=== PATIENT | female | born 1945 | race Caucasian/White ===

== ENCOUNTER 2018-05-06 05:09 | Emergency (ER) | payer MEDICARE ==
[~2018-05-06] VITALS: Ht 165.1 cm; Wt 60.0 kg
[2018-05-06 05:10] VITALS: BP 94/55
[2018-05-06] MEDS ORDERED: METHOCARBAMOL 750 MG TABLET PO ONE (05:30)
[2018-05-06] MEDS ORDERED: KETOROLAC 30 MG/1 ML IM ONE (05:30)
[2018-05-06] MEDS ORDERED: METHOCARBAMOL 750 MG TABLET ONE (05:33)
[2018-05-06] MEDS ORDERED: KETOROLAC 30 MG/1 ML ONE (05:33)
== END 2018-05-06 06:20 | disposition home or self-care (01) ==
LOC: ED 06:15
DX: M65.221 Calcific tendinitis, right upper arm (principal); X58.XXXA Exposure to other specified factors, initial encounter; Y93.89 Activity, other specified; Y99.8 Other external cause status; Y92.009 Unspecified place in unspecified non-institutional (private) residence as the place of occurrence of the external cause
CPT/HCPCS: 73030; 96372; 99284; J1885

== ENCOUNTER → 2018-06-27 | Outpatient (CLI) | payer MEDICARE ==
[~2018-06-27] MED LIST: None per pt
== END | disposition home or self-care (01) ==
LOC: STAR 09:57
PROVIDERS: ATTEND Internal Medicine
DX: Z01.818 Encounter for other preprocedural examination (principal); R91.8 Other nonspecific abnormal finding of lung field
CPT/HCPCS: 93005

== ENCOUNTER → 2018-06-28 | Outpatient (CLI) | payer MEDICARE | END | disposition home or self-care (01) | LOC: CFH 15:21 | PROVIDERS: ATTEND Internal Medicine | DX: J43.9 Emphysema, unspecified (principal); R91.8 Other nonspecific abnormal finding of lung field; R59.0 Localized enlarged lymph nodes; I25.10 Atherosclerotic heart disease of native coronary artery without angina pectoris; F17.200 Nicotine dependence, unspecified, uncomplicated | CPT/HCPCS: 71250 ==

== ENCOUNTER → 2018-08-09 | Outpatient (CLI) | payer MEDICARE | END | disposition home or self-care (01) | LOC: PETCFH 12:29 | PROVIDERS: ATTEND Internal Medicine | DX: E04.1 Nontoxic single thyroid nodule (principal); R91.8 Other nonspecific abnormal finding of lung field | CPT/HCPCS: 78815; A9552 ==

== ENCOUNTER → 2018-09-08 | Outpatient (CLI) | payer MEDICARE ==
[~2018-09-08] MED LIST changes: +IBUP-1223 PO
== END | disposition home or self-care (01) ==
LOC: CARD 14:08
PROVIDERS: ATTEND Thoracic Surgery (Cardiothoracic Vascular Surgery)
DX: C34.31 Malignant neoplasm of lower lobe, right bronchus or lung (principal)
CPT/HCPCS: 94060; 94726; 94729

== ENCOUNTER 2018-09-14 11:03 | Inpatient (IN) | payer MEDICARE ==
[2018-09-12 14:37] LABS: BASOPHILS # (AUTO) 0.05 x10^3/uL (0-0.1); BASOPHILS % (AUTO) 1 % (0-1); EOSINOPHILS % (AUTO) 1 % (1-7); LYMPHOCYTES % (AUTO) 38 % (22-44); MD NO; MEAN CORPUSCULAR HEMOGLOBIN 29.1 pg (27.0-34.8); MEAN CORPUSCULAR VOLUME 88.3 fL (80-100); MEAN PLATELET VOLUME 7.1 fL (7.4-10.4); MONOCYTES # (AUTO) 0.73 x10^3/uL (0.2-0.8); MONOCYTES % (AUTO) 8 % (2-9); NEUTROPHILS # (AUTO) 4.87 x10^3/uL (1.8-6.8); NEUTROPHILS % (AUTO) 53 % (42-75); PLATELET COUNT 325 x10^3/uL (130-400); RED BLOOD COUNT 4.96 x10^6/uL (3.82-5.3); RED CELL DISTRIBUTION WIDTH 17.3 % (9.6-15.2)
[2018-09-12 14:48] LABS: ALANINE AMINOTRANSFERASE 16 U/L (12-78); ALBUMIN 3.4 g/dL (3.4-5.0); ANION GAP 5 mmol/L (5-15); CALCIUM 9.4 mg/dL (8.5-10.1); CHLORIDE 109 mmol/L (98-107); CREATININE 0.89 mg/dL (0.55-1.02)
[2018-09-12 14:51] LABS: ALKALINE PHOSPHATASE 103 U/L (45-117); BILIRUBIN,TOTAL 0.2 mg/dL (0.2-1.0); TOTAL PROTEIN 7.4 g/dL (6.4-8.2)
[~2018-09-14] VITALS: Ht 165.1 cm; Wt 53.2 kg
[~2018-09-14 11:03] MED LIST changes: -IBUP-1223 PO
[2018-09-14] MEDS ORDERED: IBUP-1223 PO (11:29)
[2018-09-14] MEDS ORDERED: LIDOCAINE-MPF 1%, 2ML ONE (11:34)
[2018-09-14] MEDS: LACTATED RINGERS 1,000 ML IV SCH (11:47)
[2018-09-14] MEDS ORDERED: LIDOCAINE-MPF 1%, 2ML INFIL ONE (12:00)
[2018-09-14] MEDS ORDERED: MIDAZOLAM 1 MG/ML, 2ML ONE (12:48)
[2018-09-14] MEDS ORDERED: FENTANYL PF 250 MCG/5ML ONE (12:48)
[2018-09-14] MEDS ORDERED: ROCURONIUM 10 MG/ML,10ML ONE (12:53)
[2018-09-14] MEDS ORDERED: PHENYLEPHRINE 10 MG/ML ONE (12:53)
[2018-09-14] MEDS ORDERED: NEOSTIGMINE 1 MG/ML, 10ML ONE (12:53)
[2018-09-14] MEDS ORDERED: SUCCINYLCHOLINE 20 MG/ML, 10ML ONE (12:53)
[2018-09-14] MEDS ORDERED: DEXAMETHASONE 4 MG/ML, 1ML ONE (12:53)
[2018-09-14] MEDS ORDERED: GLYCOPYRROLATE 0.2MG/1ML, 5ML ONE (12:53)
[2018-09-14] MEDS ORDERED: PROPOFOL 10 MG/ML, 20ML ONE (12:53)
[2018-09-14] MEDS ORDERED: EPHEDRINE 50 MG/ML, 1ML ONE (12:53)
[2018-09-14] MEDS ORDERED: CEFAZOLIN 1,000 MG ONE (12:53)
[2018-09-14] MEDS ORDERED: ALBUMIN HUMAN 5% 500 ML ONE (14:15)
[2018-09-14] MEDS ORDERED: ALBUMIN HUMAN 25% 0 ML ONE (14:15)
[2018-09-14] MEDS ORDERED: FENTANYL PF 100 MCG/2ML ONE ×2 (14:29→15:25)
[2018-09-14] MEDS ORDERED: ACETAMINOPHEN 325 MG TABLET PO PRN (14:30)
[2018-09-14] MEDS ORDERED: ONDANSETRON 2MG/ML, 2ML IV PRN (14:30)
[2018-09-14] MEDS ORDERED: HYDROmorphone 1 MG/ML, 1ML IV PRN (14:30)
[2018-09-14] MEDS ORDERED: OXYcodone 5 MG/5 ML ORAL.SOL UDC PO PRN (14:30)
[2018-09-14] MEDS ORDERED: LACTATED RINGERS 1,000 ML IV SCH (15:20)
[2018-09-14] MEDS ORDERED: ONDANSETRON 2MG/ML, 2ML IVPush PRN (15:30)
[2018-09-14] MEDS ORDERED: DIPHENHYDRAMINE 25 MG CAPSULE PO PRN (15:30)
[2018-09-14] MEDS ORDERED: LORazepam 0.5MG TABLET PO PRN (15:30)
[2018-09-14] MEDS: FAMOTIDINE 20 MG/2 ML IVPush SCH (15:30)
[2018-09-14] MEDS ORDERED: DIPHENHYDRAMINE 50 MG/ML, 1ML IVPush PRN (15:30)
[2018-09-14] MEDS ORDERED: FAMOTIDINE 20 MG TABLET PO SCH (15:30)
[2018-09-14] MEDS ORDERED: LORazepam 2 MG/ML, 1ML IVPush PRN (15:30)
[2018-09-14] MEDS ORDERED: ENALAPRILAT 1.25 MG/ML, 2ML IVPush PRN (15:30)
[2018-09-14] MEDS: FENTANYL PF 100 MCG/2ML IV PRN ×3 (15:30→15:55)
[2018-09-14] MEDS ORDERED: hydrALAzine 20 MG/ML, 1ML IVPush PRN (15:30)
[2018-09-14] MEDS ORDERED: MEPERIDINE/PF 50 MG/ML ONE (15:55)
[2018-09-14] MEDS: BUPIVACAINE EPI SCH (16:00)
[2018-09-14] MEDS ORDERED: MEPERIDINE/PF 25MG/0.5ML IVPush PRN (16:00)
[2018-09-14] MEDS: SODIUM CHLORIDE 0.9% EPI SCH (16:00)
[2018-09-14] MEDS: HYDROMORPHONE EPI SCH (16:00)
[2018-09-14] MEDS ORDERED: OXYcodone 5 MG/5 ML ORAL.SOL UDC ONE (16:16)
[2018-09-14] MEDS ORDERED: ACETAMINOPHEN 650 MG/20.3 ML UDC ONE (16:16)
[2018-09-14 19:23] VITALS: BP 99/63
[2018-09-14] MEDS: MEPERIDINE/PF 50 MG/ML IVPush PRN (23:40)
[2018-09-14 23:42] VITALS: BP 106/66
[2018-09-14 23:48] VITALS: BP 106/66
[2018-09-15] MEDS: FAMOTIDINE 20 MG/2 ML IVPush SCH ×2 (03:01→15:31)
[2018-09-15 04:35] LABS: BASOPHILS # (AUTO) 0.04 x10^3/uL (0-0.1); BASOPHILS % (AUTO) 0 % (0-1); EOSINOPHILS % (AUTO) 0 % (1-7); LYMPHOCYTES # (AUTO) 1.36 x10^3/uL (1-3.4); LYMPHOCYTES % (AUTO) 11 % (22-44); MD NO; MEAN CORPUSCULAR HEMOGLOBIN 29.4 pg (27.0-34.8); MEAN CORPUSCULAR HGB CONC 33.4 g/dL (32.4-35.8); MEAN CORPUSCULAR VOLUME 88.1 fL (80-100); MEAN PLATELET VOLUME 7.6 fL (7.4-10.4); MONOCYTES # (AUTO) 0.95 x10^3/uL (0.2-0.8); MONOCYTES % (AUTO) 8 % (2-9); NEUTROPHILS # (AUTO) 9.62 x10^3/uL (1.8-6.8); NEUTROPHILS % (AUTO) 80 % (42-75); PLATELET COUNT 277 x10^3/uL (130-400); RED BLOOD COUNT 4.13 x10^6/uL (3.82-5.3)
[2018-09-15] MEDS: MEPERIDINE/PF 50 MG/ML IVPush PRN ×3 (05:26→17:26)
[2018-09-15 05:35] LABS: ANION GAP 7 mmol/L (5-15); CALCIUM 8.9 mg/dL (8.5-10.1); CHLORIDE 107 mmol/L (98-107); CREATININE 0.54 mg/dL (0.55-1.02)
[2018-09-15] MEDS: LACTATED RINGERS 1,000 ML IV SCH ×2 (05:35→23:51)
[2018-09-15 06:44] VITALS: BP 86/50
[2018-09-15 12:40] VITALS: BP 86/50
[2018-09-15] MEDS: SODIUM CHLORIDE 0.9% EPI SCH (15:32)
[2018-09-15] MEDS: HYDROMORPHONE EPI SCH (15:32)
[2018-09-15] MEDS: BUPIVACAINE EPI SCH (15:32)
[2018-09-15 15:46] VITALS: BP 85/51
[2018-09-15 18:42] VITALS: BP 85/47
[2018-09-15 23:56] VITALS: BP 90/48
[2018-09-16] MEDS: MEPERIDINE/PF 50 MG/ML IVPush PRN
[2018-09-16] MEDS: FAMOTIDINE 20 MG/2 ML IVPush SCH ×2 (03:44→15:54)
[2018-09-16 06:36] VITALS: BP 91/59
[2018-09-16] MEDS: IBUPROFEN 800 MG TABLET PO PRN ×2 (09:47→18:23)
[2018-09-16] MEDS: OXYcodone/APAP 5/325MG TABLET PO PRN ×3 (10:10→19:50)
[2018-09-16 12:15] VITALS: BP 94/60
[2018-09-16] MEDS: HYDROMORPHONE EPI SCH (14:13)
[2018-09-16] MEDS: SODIUM CHLORIDE 0.9% EPI SCH (14:13)
[2018-09-16] MEDS: BUPIVACAINE EPI SCH (14:13)
[2018-09-16] MEDS: ACETAMINOPHEN 500 MG TABLET PO SCH ×2 (15:54→19:52)
[2018-09-16 16:43] VITALS: BP 103/66
[2018-09-16 18:48] VITALS: BP 107/71
[2018-09-16] MEDS: FAMOTIDINE 20 MG TABLET PO SCH (22:01)
[2018-09-17] MEDS: OXYcodone/APAP 5/325MG TABLET PO PRN ×2 (00:09→04:28)
[2018-09-17 00:55] VITALS: BP 143/70
[2018-09-17] MEDS: ACETAMINOPHEN 500 MG TABLET PO SCH ×4 (02:48→21:55)
[2018-09-17 03:57] VITALS: BP 115/61
[2018-09-17] MEDS: IBUPROFEN 800 MG TABLET PO PRN ×3 (06:14→20:16)
[2018-09-17 06:38] VITALS: BP 117/74
[2018-09-17] MEDS ORDERED: LACTULOSE 20 GM/30 ML UDC PO PRN (08:30)
[2018-09-17] MEDS ORDERED: BISACODYL 10 MG SUPP PR PRN (08:30)
[2018-09-17] MEDS: DOCUSATE 50 MG/5 ML, 10ML UDC NG SCH (08:47)
[2018-09-17] MEDS: DOCUSATE 100 MG CAPSULE PO SCH (08:59)
[2018-09-17] MEDS: HYDROmorphone 2MG TABLET PO PRN ×5 (08:59→21:51)
[2018-09-17] MEDS: FAMOTIDINE 20 MG TABLET PO SCH ×2 (09:00→21:15)
[2018-09-17 12:35] VITALS: BP 116/61
[2018-09-17 16:10] VITALS: BP 106/65
[2018-09-17 18:42] VITALS: BP 125/68
[2018-09-17] MEDS ORDERED: SENNA/DOCUSATE TABLET PO SCH (21:00)
[2018-09-18] VITALS: BP 129/73
[2018-09-18] MEDS: HYDROmorphone 2MG TABLET PO PRN ×3 (01:54→11:24)
[2018-09-18] MEDS: ACETAMINOPHEN 500 MG TABLET PO SCH ×2 (03:36→11:23)
[2018-09-18 04:19] VITALS: BP 116/77
[2018-09-18 07:22] VITALS: BP 147/77
[2018-09-18] MEDS: IBUPROFEN 800 MG TABLET PO PRN (08:38)
[2018-09-18] MEDS: DOCUSATE 50 MG/5 ML, 10ML UDC NG SCH (09:00)
[2018-09-18] MEDS: DOCUSATE 100 MG CAPSULE PO SCH (09:00)
[2018-09-18] MEDS: FAMOTIDINE 20 MG TABLET PO SCH (09:00)
[2018-09-18 12:25] VITALS: BP 106/62
== END 2018-09-18 14:00 | disposition home or self-care (01) | DRG 163 ==
LOC: ORIP 11:03 → 3NW 16:49
PROVIDERS: ADMIT Thoracic Surgery (Cardiothoracic Vascular Surgery); ATTEND Thoracic Surgery (Cardiothoracic Vascular Surgery)
PROC: 07B70ZZ Excision of Thorax Lymphatic, Open Approach (ICD-10-PCS; 2018-09-14)
PROC: 0BTF0ZZ Resection of Right Lower Lung Lobe, Open Approach (ICD-10-PCS; principal; 2018-09-14 13:00)
DX: C34.31 Malignant neoplasm of lower lobe, right bronchus or lung (principal); R65.11 Systemic inflammatory response syndrome (SIRS) of non-infectious origin with acute organ dysfunction; J93.82 Other air leak; Z87.891 Personal history of nicotine dependence
CPT/HCPCS: 36415; 71045; 80048; 80053; 85025; 86850; 86900; 86923; 88305; 88309; 93005; C1729; G0378; J0690; J1100; J1170; J2175; J2250; J2704; J2710; J3010; J3490; P9045; P9047; C1760; J0330; J2370; J7050; J7120

== ENCOUNTER 2021-06-12 06:47 | Emergency (ER) | payer MEDICARE ==
[~2021-06-12] VITALS: Ht 165.1 cm; Wt 56.7 kg
[~2021-06-12 06:47] MED LIST changes: +IBUP-1223 PO
--- NOTE | 2021-06-12 07:33 | NUR ---
ERMD AT BEDSIDE FOR EVALUATION.
--- NOTE | 2021-06-12 07:35 | NUR ---
PATIENT WALKED BACK FROM LOBBY WITH CHIEF C/O UPPER BACK AND SHOULDER PAIN X3 MONTHS. PER PATIENT PAIN HAS GOTTEN WORSE, RADIATES TO RIGHT ARMPIT AND UNDER RIGHT BREAST. PATIENT STATES SHE HAS A "SMALL LUMP" UNDERNEATH HER RIGHT ARMPIT. PATIENT HAS HISTORY OF LUNG CA, WITH TUMOR REMOVAL 3 YEARS AGO. NADN, CONNECTED TO MONITOR, VSS, CALL LIGHT WITHIN REACH.
--- NOTE | 2021-06-12 07:53 | NUR ---
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 CALL LIGHT WITHIN REACH, NO FURTHER NEEDS AT THIS TIME.
[2021-06-12] MEDS ORDERED: SODIUM CHLORIDE FLUSH 10ML SYR IVF ONE (08:00)
[2021-06-12] MEDS ORDERED: SODIUM CHLORIDE 0.9% 1,000ML IVBOLUS ONE (08:00)
[2021-06-12 08:09] LABS: BASOPHILS % (AUTO) 1 % (0-1); EOSINOPHILS % (AUTO) 1 % (1-7); LYMPHOCYTES % (AUTO) 24 % (22-44); MEAN CORPUSCULAR HEMOGLOBIN 30.8 pg (27.0-34.8); MEAN CORPUSCULAR HGB CONC 33.3 g/dL (32.4-35.8); MEAN PLATELET VOLUME 7.3 fL (7.4-10.4); MONOCYTES % (AUTO) 7 % (2-9); NEUTROPHILS % (AUTO) 68 % (42-75); PLATELET COUNT 309 x10^3/uL (130-400); RED BLOOD COUNT 5.28 x10^6/uL (3.82-5.3); RED CELL DISTRIBUTION WIDTH 16.1 % (9.6-15.2)
[2021-06-12 08:11] LABS: ALANINE AMINOTRANSFERASE 15 U/L (12-78); ALBUMIN 3.8 g/dL (3.4-5.0); ANION GAP 5 mmol/L (5-15); CALCIUM 9.3 mg/dL (8.5-10.1); CHLORIDE 108 mmol/L (98-107); CREATININE 0.71 mg/dL (0.55-1.02)
[2021-06-12 08:16] LABS: ALKALINE PHOSPHATASE 93 U/L (45-117); BILIRUBIN,TOTAL 0.4 mg/dL (0.2-1.0); TOTAL PROTEIN 8.1 g/dL (6.4-8.2); TROPONIN I < 0.015 ng/mL (0.000-0.045)
--- NOTE | 2021-06-12 09:08 | NUR ---
PATIENT TO CT SCAN.
[2021-06-12 09:11] VITALS: BP 119/65
[2021-06-12] MEDS ORDERED: OMNIPAQUE 350 MG/ML, 75ML BOTTLE ONE (09:19)
--- NOTE | 2021-06-12 09:59 | NUR ---
PATIENT RESTING IN [facility], CONNECTED TO MONITOR, VSS, CALL LIGHT WITHIN REACH. PATIENT UP FOR RECHECK.
--- NOTE | 2021-06-12 10:08 | NUR ---
ERMD AT BEDSIDE TO DISCUSS POC.
--- NOTE | 2021-06-12 11:22 | NUR ---
IV removed with tip intact. Patient given discharge instructions and they have confirmed that they understand the instructions. Patient ambulatory with steady gait. NAD, all questions answered appropriately, denies additional needs at this time. No personal belongings left in room after discharge.
== END 2021-06-12 11:23 | disposition home or self-care (01) ==
LOC: ED 11:00
DX: R91.8 Other nonspecific abnormal finding of lung field (principal); R07.89 Other chest pain; F17.200 Nicotine dependence, unspecified, uncomplicated
CPT/HCPCS: 36415; 71045; 71260; 80053; 83880; 84484; 85025; 85379; 93005; 96360; 99285; J7030; Q9967